=== PATIENT | male | born 1980 | race Caucasian/White ===

== ENCOUNTER → 2016-07-30 | Outpatient (CLI) | payer BC ==
[~2016-07-30] MED LIST: CITA20TA9 PO; GLC/500 PO; GLY/5 PO; INSDGI SC; LISI-461 PO; OXYC-57 PO; PREG1CAP28 PO
--- NOTE | 2016-07-30 18:44 | DIAGNOSTIC IMAGING REPORT ---
MRI OF THE LUMBAR SPINE WITHOUT CONTRAST CLINICAL HISTORY: Lumbar pain. L5-S1 herniated disc. COMPARISON STUDY: No previous studies for comparison. TECHNIQUE: Utilizing a 1.5 Liz magnet and dedicated coil, multiplanar, multiecho imaging of the lumbar spine was performed without IV contrast. FINDINGS: For purposes of numbering on this exam, the L5-S1 disc space is assigned to axial image 23 of 26. Alignment of the lumbar spine is anatomic. Vertebral body heights are maintained. There is no intracanalicular mass or fluid collection. The conus terminates at the upper L2 level. Paravertebral soft tissues are unremarkable. No marrow replacement is present. L1-2: The central canal and neural foramen are patent. L2-3: The central canal and neural foramen are patent. L3-4: The central canal and neural foramen are patent. L4-5: The central canal and neural foramen are patent. L5-S1: Disc space narrowing is noted. There is a disc bulge with superimposed central disc protrusion that result in mild narrowing of the central canal and lateral recesses as well as the left neural foramen. There is minimal facet arthrosis at this level. IMPRESSION: 1. Disc bulge with superimposed central disc protrusion at L5-S1 which result in mild narrowing of the central canal and lateral recesses. 2. Otherwise, unremarkable MRI of the lumbar spine. Electronically signed by: Stewart Beal M.D. 07/30/2016 6:42 PM Dictated Date/Time: 07/30/2016 6:38 PM
== END | disposition home or self-care (01) ==
LOC: C.MRI 17:32
PROVIDERS: ATTEND Orthopaedic Surgery Orthopaedic Surgery of the Spine
DX: M51.27 Other intervertebral disc displacement, lumbosacral region (principal)

== ENCOUNTER → 2016-08-06 | Day surgery (SDC) | payer BC ==
[2016-07-22 09:11] VITALS: BMI 32.0
[~2016-08-06] VITALS: Ht 177.8 cm; Wt 102.3 kg
[~2016-08-06] MED LIST changes: +ATROPINE SULFATE 0.1 MG/ML 5ML SYR IV PRN; +BACITRACIN 50000 UNIT VIAL IR ONE; +BUPIVACAINE/EPINEPHRINE 0.5% MPF 1:200,000 30 ML VIAL INJ ONE; +CEFAZOLIN IV 2,000 MG/60 ML D5W IV ONE; +DEXAMETHASONE SOD INJ 4 MG/ML VIAL ONE; +DURASEAL DURAL SEALANT 5ML TOP ONE; +EpHEDrine SULFATE INJ 50 MG/ML AMP IV PRN; +FENTANYL CITRATE INJ 50 MCG/1 ML 2 ML VIAL ONE; +FLOSEAL HEMOSTATIC MATRIX 5ML TOP ONE; +GLYCOPYRROLATE INJ 0.2 MG/ML VIAL ONE; +HYDROmorphone INJ 1 MG/ML SYR IV PRN; +LABETALOL HCL IV 5 MG/ML 20ML IV PRN; +LABETALOL HCL IV 5 MG/ML 20ML ONE; +LACTATED RINGER'S 1000ML 1,000 ML IV SCH; +LIDOCAINE HCL 2% 2 ML VIAL (20MG/ML) ONE; +MIDAZOLAM HCL 1 MG/ML 2ML VIAL ONE; +NEOSTIGMINE METHYLSULFATE 1 MG/ML 10ML VIAL ONE; +ONDANSETRON INJ 2 MG/ML 2 ML VIAL IV PRN; +ONDANSETRON INJ 2 MG/ML 2 ML VIAL ONE; +OXYCODONE/ACETAMINOPHEN 5-325 TAB PO PRN; +PROPOFOL IV EMULSION 10 MG/ML 20 ML VIAL IV ONE; +ROCURONIUM BROMIDE 10 MG/ML 5 ML VIAL ONE; +SODIUM CHLORIDE 0.9% 1000ML 1,000 ML IV SCH; +THROMBIN 5000 UNITS KIT TOP ONE
[2016-08-06 09:32] VITALS: BP 122/91; PULSE 93; TEMP 37; O2SAT 96; Ht 177.8 cm; Wt 102.3 kg
--- NOTE | 2016-08-06 11:01 | History and Physical ---
History & Physical Date Aug 06, 2016. Chief Complaint LBP and LLE pain History of Present Illness The patient is a 36 year old male with complaints of above who failed outpatient treatment. intermittent numbness. no weakness. MRI shows L5-S1 DDD and L eccentric disc protrusion. Past Medical/Surgical History HTN type II diabetes Additional History Hepatic Disease: No Endocrine Disorder: No Kidney Disease: No Hypertension: Yes Heart Disease: No Bleeding Tendencies: No Infectious Diseases: No Allergies Coded Allergies: No Known Allergies (Unverified , 08/06/16) Home Medications Scheduled Citalopram Hydrobromide (Celexa), 20 MG PO QAM Glyburide (Diabeta), 10 MG PO BID Insulin Glargine (Lantus), 20 UNITS SC QAM Lisinopril (Zestril), 10 MG PO QAM Metformin Hcl (Glucophage), 1,000 MG PO BID Pregabalin (Lyrica), 75 MG PO QAM Physical Examination Skin: warm/dry Eyes: normal inspection ENT: normal ENT inspection, pharynx normal Head: normocephalic, atraumatic Neck: supple, trachea midline Respiratory/Chest: lungs clear, no respiratory distress Cardiovascular: regular rate, rhythm Back: normal inspection Extremities: normal inspection, normal range of motion Neurologic/Psych: no motor/sensory deficits, alert, normal reflexes, oriented x 3 Diagnosis L L5-S1 HNP Plan of Treatment L L5-S1 microdisceomty
--- NOTE | 2016-08-06 11:16 | Discharge Instructions ---
Discharge Instructions Admission Reason for Admission: Herniated Nucleus Pulposus Discharge Discharge Diagnosis / Problem: Lumbar Disc Herniation Discharge Goals Goal(s): Decrease discomfort, Improve function, Increase independence Activity Recommendations Activity Limitations: as noted below Lifting Limitations: no more than 5 pounds Exercise/Sports Limitations: until after follow-up appointment May Resume Sexual Activity: after follow-up appointment Shower/Bathe: may shower/bathe in 3 days . Instructions / Follow-Up Instructions / Follow-Up ACTIVITY RECOMMENDATIONS: SELF CARE INSTRUCTIONS AFTER A LAMINECTOMY 1. No prolonged sitting (less than 30 minutes for the first 3 weeks after surgery). 2. No bending, lifting more than 5 pounds, or twisting (roll like a log when turning in bed). 3. You may shower 3 days after surgery if no drainage from wound. Thoroughly dry wound. Do not soak in the tub. 4. Please walk as much as you can for exercise. Gradually increase the distance that you walk as your endurance increases. 5. You may drive in 7-10 days if you are comfortable and no longer requiring pain medications. SPECIAL CARE INSTRUCTIONS: VERY IMPORTANT TO READ AND REVIEW A. Your surgical incision has been closed with a cosmetic suture under the skin that will dissolve in about 6 weeks. In 14 days, you can use a pair of clean scissors and cut the suture that is left outside of the skin at the ends of your incision. B. Complications are uncommon, but please contact us if you have any signs or symptoms of: 1. wound infection (fever higher than 102.5 degrees F, redness, separation of wound, drainage, or increasing pain from the incision) 2. blood clots in legs (pain, swelling, redness and warmth in legs) 3. urinary tract infection (fever higher than 102.5 degrees, burning upon urination or increased frequency of urination) 4. nerve problems (inability to walk on your toes or heels, numbness, loss of bowel or bladder control) 5. any other symptoms that concern you. C. Please call the office at if you have any concerns or questions about your operation or recovery. MANAGING PAIN AFTER SPINAL SURGERY 1. Narcotic medication is intended for short-term use and will be provided for surgical pain. Surgical pain usually lasts for a period of 4-6 weeks. Narcotic medication includes Percocet, Vicodin, Darvocet, Tylenol #3 or Lortab. 2. Longer-term pain is more appropriately treated with non-narcotic medication such as Tylenol ES. 3. Muscle spasm is not appropriately treated with narcotics. Muscle relaxers such as Soma, Flexeril or Skelaxin can be used along with Tylenol ES. 4. Remember that we all live with some "aches and pains". This is not unusual or uncommon after an injury or as we get older. 5. We will provide appropriate medication within the normal guidelines of their prescribed use. We will also be very cautious and aware of potential abuse and extended duration of patients' medication needs. 6. Please allow 2-3 days to process refills. Prescriptions will not be mailed but must be picked up at the office. FOLLOW UP VISIT: Keep your scheduled follow-up appointment. Any questions, please call the office at . Current Hospital Diet Patient's current hospital diet: Discharge Diet Recommended Diet: Regular Diet Pending Studies Studies pending at discharge: no Medical Emergencies . Who to Call and When: Medical Emergencies: If at any time you feel your situation is an emergency, please call 911 immediately. . Non-Emergent Contact Non-Emergency issues call your: Surgeon Call Non-Emergent contact if: temperature is above 101, your pain is not controlled, your pain is worsening, your pain is unusual for you, your pain is concerning you, wound has increased drainage, wound has increased redness, wound has increased pain, you have any medication questions . "Provider Documentation" section prepared by Camilo Waterman. VTE Core Measure Inpt VTE Proph given/why not?: Jose J Toledo
--- NOTE | 2016-08-06 12:20 | DIAGNOSTIC IMAGING REPORT ---
LUMBAR SPINE, INTRAOPERATIVE FLUOROSCOPY HISTORY: Microdiscectomy. FLUOROSCOPY TIME: 4 seconds. FINDINGS: Intraoperative fluoroscopy was provided for the lumbar spine. 2 fluoroscopic spot images were obtained. IMPRESSION: Fluoroscopy provided for a L5-S1 microdiscectomy. Electronically signed by: Ino Martinez M.D. 08/06/2016 12:19 PM Dictated Date/Time: 08/06/2016 12:18 PM
[2016-08-06] MEDS: FENTANYL CITRATE INJ 50 MCG/1 ML 2 ML VIAL IV PRN ×4 (12:37→12:52)
--- NOTE | 2016-08-06 13:15 | Anesthesiology Progress Note ---
Anesthesia Post Op Note Date & Time Aug 06, 2016 at 13:15 Vital Signs Pain Intensity: 4 Vital Signs Past 12 Hours Date Time Temp Pulse Resp B/P Pulse Ox O2 Delivery O2 Flow Rate FiO2 08/06/16 13:10 36.8 89 16 133/85 94 Room Air 08/06/16 13:00 36.8 91 16 137/85 94 Room Air 08/06/16 12:50 103 16 156/106 99 Room Air 08/06/16 12:40 103 16 156/106 99 Mask 10 08/06/16 12:30 103 16 163/105 99 Mask 10 08/06/16 12:21 36.6 95 16 182/112 99 Mask 10 08/06/16 09:32 37.0 93 20 122/91 96 Room Air Notes Mental Status: alert / awake / arousable, participated in evaluation Pt Amnestic to Procedure: Yes Nausea / Vomiting: adequately controlled Pain: adequately controlled Airway Patency, RR, SpO2: stable & adequate BP & HR: stable & adequate Hydration State: stable & adequate Anesthetic Complications: no major complications apparent
[2016-08-06 13:20] VITALS: BP 129/83; PULSE 84; TEMP 37.2; O2SAT 96
--- NOTE | 2016-08-06 13:33 | OPERATIVE REPORT ---
DATE OF OPERATION: 08/06/2016 PREOPERATIVE DIAGNOSIS: Left L5-S1 herniated nucleus pulposus. POSTOPERATIVE DIAGNOSIS: Same. PROCEDURE: Left L5-S1 microdiscectomy. SURGEON: Dr. Rider. RELAY OPERATOR: Camilo Waterman PA-C. Please note he participated in all portions of the procedure and was critical for performance of procedure, participated in positioning, prepping, draping, retraction, and wound closure. ANESTHESIA: General endotracheal anesthesia. COMPLICATIONS: None. ESTIMATED BLOOD LOSS: Minimal. PROCEDURE IN DETAIL: After identification of patient and operative level, he was brought to the OR where he underwent induction of general anesthesia. He was then positioned prone on Michele OR table with all bony prominences well padded. Care was taken to avoid pressure on the periorbital area. Lumbosacral area was sterilely prepped and draped in usual fashion. Antibiotics were administered. Time-out was performed. Level was confirmed and skin incision was localized with lateral fluoroscopy and a spinal needle. I infiltrated the skin with 0.5% Marcaine with epinephrine. I then exposed the left L5-S1 interlaminar window and confirmed level with fluoroscopy. I marked the operative level and placed a belt sewer retractor and then created a small laminotomy under the caudal edge of L5 and removed the ligamentum flavum. Identified the traversing nerve root, mobilized it medially, protected it with a nerve root retractor and made a vertical annulotomy and removed loose disc material deep to the annulus. The nerve root appeared decompressed, part of the annulus was calcified but was more mobile after removal of disc fragments. I then irrigated with bacitracin solution. I did question whether there was a small area of thin dura under the remaining edge of the L5 lamina. There was no CSF leak, question whether there was an arachnoid bleb but this was not obvious. I explored the area, could not find any tear. I then applied FloSeal for hemostasis and then applied DuraSeal over the exposed dura at the end as insurance. I then closed in layered fashion over ROSANA drain. All sponge and needle counts were correct at the end of the case. I attest to the content of the Intraoperative Record and any orders documented therein. Any exceptio ns are noted below.
[2016-08-06 13:50] VITALS: BP 126/90; PULSE 92; O2SAT 97
[2016-08-06 14:20] VITALS: BP 139/82; PULSE 89; TEMP 37.1; O2SAT 95
== END | disposition home or self-care (01) ==
LOC: C.ACU 09:13
PROVIDERS: ATTEND Orthopaedic Surgery Orthopaedic Surgery of the Spine
DX: M51.27 Other intervertebral disc displacement, lumbosacral region (principal); I10 Essential (primary) hypertension; E11.9 Type 2 diabetes mellitus without complications; F32.9 Major depressive disorder, single episode, unspecified; Z79.4 Long term (current) use of insulin; Z68.32 Body mass index [BMI] 32.0-32.9, adult; Z98.818 Other dental procedure status; F17.220 Nicotine dependence, chewing tobacco, uncomplicated

== ENCOUNTER 2016-12-03 07:12 | Inpatient (IN) | payer BC ==
--- NOTE | 2016-11-18 18:49 | HISTORY & PHYSICAL EXAMINATION ---
DATE OF ADMISSION: 12/03/2016 CHIEF COMPLAINT: Evaluate recurrent back and left leg pain. HISTORY OF PRESENT ILLNESS: The patient is a 36-year-old male who underwent elective microdiskectomy by myself back at the end of July for L5-S1 disc herniation, disc degeneration and improved for a while, but then developed recurrence of symptoms. Prior to surgery, he had had chronic symptoms for years, undergoing multiple epidural injections and courses of therapy without lasting benefit. He states his symptoms recurred when he attempted to increase activity and do more at work. 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 A followup MRI revealed persistent disc protrusion, epidural fibrosis prior surgery, but there are no obvious recurrent disc herniations. He had significant foraminal stenosis on the left at L5-S1. He does have advanced disc degeneration, some mild post-surgical changes. He reports now that symptoms have recurred with activity, they are worse than prior. He desires definitive treatment. He has no right leg symptoms. No fevers, no chills. He had an uneventful postoperative course. PAST MEDICAL AND SURGICAL HISTORY: Hypertension is well controlled, diabetes treated with oral medications, prior meniscectomy, and see above for lumbar surgery. He has obesity. ALLERGIES: None. MEDICATIONS: Lisinopril, metformin, glyburide, Celexa, hydrocodone. SOCIAL HISTORY: The patient is single, uses snuff. No alcohol. FAMILY HISTORY: Diabetes, hypertension. REVIEW OF SYSTEMS: Negative for chest pain, shortness of breath, dyspnea on exertion, fevers, chills, night sweats, malaise. HE REPORTS AN ALLERGY TO BEE STINGS. He denies other metabolic, endocrine or neurologic complaints or concerns and no bleeding diathesis. PHYSICAL EXAMINATION: GENERAL: He stands 5 feet 10 inches tall. He weights 227 pounds. He stands normal gait. BACK AND SPINE: He has well preserved lumbar range of motion. His lumbar incision from prior is well healed with no erythema, drainage, fluctuance or tenderness to palpation. EXTREMITIES: He has negative straight leg raise on the right, positive on the left. He has 5/5 strength mini motor testing of both lower extremities in all motor groups. He has intact sensation to light touch in all dermatomes in the lower extremities. He has symmetric normal DTRs at patellar and Achilles. No clonus. He has palpable dorsalis pedis pulses. CARDIOVASCULAR: Auscultation reveals a regular rate and rhythm. LUNGS: Clear to auscultation bilaterally. NEUROLOGIC: He has normal affect. NECK: He has no obvious lymphadenopathy. SKIN: Normal in appearance with a lumbar scar as above. ASSESSMENT AND PLAN: The patient has recurrent lumbar disc protrusion with foraminal stenosis and recurrent symptoms due to his advanced disc degeneration. Given the chronicity of his symptoms, failure of initial decompression discectomy, he desires revision surgery. At this point to address foraminal disease, I think he is best served with revision, decompression, facetectomy and fusion with interbody L5-S1. The risks reviewed and he would like to proceed. His questions were answered. JOSI
[2016-11-21 10:23] VITALS: Ht 177.8 cm; Wt 100.8 kg
--- NOTE | 2016-11-21 10:54 | PAT Medication Instructions ---
Service Date November 21, 2016. Current Home Medication List Citalopram Hydrobromide (Celexa), 20 MG PO QAM Glyburide (Diabeta), 10 MG PO BID Insulin Glargine (Lantus), 20 UNITS SC QAM Lisinopril (Zestril), 10 MG PO QAM Metformin Hcl (Glucophage), 1,000 MG PO BID Oxycodone/Acetaminophen 5MG/325MG (Percocet 5MG/325MG), 1-2 TABLETS PO Q4H PRN for Pain Pregabalin (Lyrica), 75 MG PO QAM Medication Instructions For Your Scheduled Surgery - Hold the following medications 48 hours prior to surgery: Metformin Hcl (Glucophage), 1,000 MG PO BID - Hold the following medications the morning of surgery: Glyburide (Diabeta), 10 MG PO BID Lisinopril (Zestril), 10 MG PO QAM - Take the following medications the morning of surgery with a sip of water OTHERWISE NOTHING TO EAT OR DRINK AFTER MIDNIGHT: Citalopram Hydrobromide (Celexa), 20 MG PO QAM Pregabalin (Lyrica), 75 MG PO QAM Oxycodone/Acetaminophen 5MG/325MG (Percocet 5MG/325MG), 1-2 TABLETS PO Q4H PRN for Pain (may take if needed up to 4 hours prior to surgery) - For Insulin Dependent Diabetic patients: Test blood sugar A.M. of surgery. - If Blood Sugar is GREATER THAN 150, take half of your regular dose of: Insulin Glargine (Lantus) - If Blood Sugar is LESS THAN 150, do not take any: Insulin Glargine ( Lantus) - Take the following medications as scheduled the night before surgery: Glyburide (Diabeta), 10 MG PO BID Oxycodone/Acetaminophen 5MG/325MG (Percocet 5MG/325MG), 1-2 TABLETS PO Q4H PRN for Pain If you have any questions please call us at [phone] or [phone] or [phone]
[2016-11-21 11:34] LABS: BASO % 0.9 %; BASO ABS # 0.05 K/uL (0-0.2); COMPLETE YES; EOS % 5.1 %; HEMATOCRIT 41.9 % (42-52); IG% 1.3 %; LYMPH % 33.3 %; LYMPH ABS # 1.83 K/uL (1.2-3.4); MEAN CELL VOLUME 85.5 fL (80-100); MEAN CORPUSCULAR HGB CONC 35.1 g/dl (32-36); MEAN PLATELET VOLUME 10.6 fL (7.4-10.4); MONO % 5.5 %; NEUT % 53.9 %; PLATELET COUNT 225 K/uL (130-400); WHITE BLOOD COUNT 5.49 K/uL (4.8-10.8)
[2016-11-21 11:38] LABS: URINE APPEARANCE CLEAR (CLEAR); URINE BILIRUBIN NEG (NEG); URINE COLOR YELLOW; URINE EPITHELIAL CELL AUTO 0-5 /lpf (0-5); URINE NITRITE NEG (NEG); URINE SPECIFIC GRAVITY 1.022 (1.000-1.030); UROBILINOGEN NEG (NEG)
[2016-11-21 12:01] LABS: MANUAL MICROSCOPIC REQUIRED? NO; REVIEW REQ? NO
[2016-11-21 13:29] LABS: BUN/CREATININE RATIO 18.9 (10-20); CREATININE 0.83 mg/dl (0.60-1.40); POTASSIUM 4.4 mmol/L (3.5-5.1)
[~2016-12-03] VITALS: Ht 177.8 cm; Wt 100.8 kg
[2016-12-03] VITALS (9 sets, daily range): BP systolic 104–127; BP diastolic 67–85; PULSE 83–103; TEMP 36.7–37; O2SAT 94–99
[~2016-12-03 07:12] MED LIST changes: -ATROPINE SULFATE 0.1 MG/ML 5ML SYR IV PRN; -BACITRACIN 50000 UNIT VIAL IR ONE; -BUPIVACAINE/EPINEPHRINE 0.5% MPF 1:200,000 30 ML VIAL INJ ONE; +CEFAZOLIN 2000 MG/60 ML D5W IV SCH; -CEFAZOLIN IV 2,000 MG/60 ML D5W IV ONE; +CeleBREX 200 MG CAP PO SCH; -DEXAMETHASONE SOD INJ 4 MG/ML VIAL ONE; -DURASEAL DURAL SEALANT 5ML TOP ONE; -EpHEDrine SULFATE INJ 50 MG/ML AMP IV PRN; -FENTANYL CITRATE INJ 50 MCG/1 ML 2 ML VIAL ONE; -FLOSEAL HEMOSTATIC MATRIX 5ML TOP ONE; -GLYCOPYRROLATE INJ 0.2 MG/ML VIAL ONE; -HYDROmorphone INJ 1 MG/ML SYR IV PRN; -LABETALOL HCL IV 5 MG/ML 20ML IV PRN; -LABETALOL HCL IV 5 MG/ML 20ML ONE; -LIDOCAINE HCL 2% 2 ML VIAL (20MG/ML) ONE; -MIDAZOLAM HCL 1 MG/ML 2ML VIAL ONE; -NEOSTIGMINE METHYLSULFATE 1 MG/ML 10ML VIAL ONE; -ONDANSETRON INJ 2 MG/ML 2 ML VIAL IV PRN; -ONDANSETRON INJ 2 MG/ML 2 ML VIAL ONE; -OXYCODONE/ACETAMINOPHEN 5-325 TAB PO PRN; +PREGABALIN 75 MG CAP PO SCH; -PROPOFOL IV EMULSION 10 MG/ML 20 ML VIAL IV ONE; -ROCURONIUM BROMIDE 10 MG/ML 5 ML VIAL ONE; -SODIUM CHLORIDE 0.9% 1000ML 1,000 ML IV SCH; -THROMBIN 5000 UNITS KIT TOP ONE
--- NOTE | 2016-12-03 09:13 | History & Physical Bridge Note ---
H&P Re-Evaluation Bridge Note: I have examined the patient, reviewed the History & Physical and in the interval since the performance of the History & Physical I have noted the following changes of clinical significance: No changes noted
[2016-12-03] MEDS ORDERED: EpHEDrine SULFATE INJ 50 MG/ML AMP IV PRN (09:15)
[2016-12-03] MEDS ORDERED: PHENYLEPHRINE 100MCG/ML 5ML SYR IV PRN (09:15)
[2016-12-03] MEDS ORDERED: ATROPINE SULFATE 0.1 MG/ML 5ML SYR IV PRN (09:15)
[2016-12-03] MEDS ORDERED: ONDANSETRON INJ 2 MG/ML 2 ML VIAL IV PRN ×2 (09:15→11:30)
[2016-12-03] MEDS ORDERED: MIDAZOLAM HCL 1 MG/ML 2ML VIAL ONE (09:26)
[2016-12-03] MEDS ORDERED: FENTANYL CITRATE INJ 50 MCG/1 ML 2 ML VIAL ONE ×4 (09:26→11:15)
[2016-12-03] MEDS ORDERED: HEPARIN SOD (PORCINE) 1000 UNIT/ML 10 ML VIAL ONE (09:27)
[2016-12-03] MEDS ORDERED: THROMBIN FOR SOLN 20000 UNIT KIT ONE (09:27)
[2016-12-03] MEDS ORDERED: BACITRACIN 50000 UNIT VIAL ONE (09:27)
[2016-12-03] MEDS ORDERED: BUPIVACAINE/EPINEPHRINE 0.5% MPF 1:200,000 30 ML VIAL ONE (09:27)
[2016-12-03] MEDS ORDERED: THROMBIN 5000 UNITS KIT ONE (09:27)
[2016-12-03] MEDS ORDERED: HYDROmorphone INJ 2 MG/ML SYR/VIAL ONE (10:05)
[2016-12-03] MEDS ORDERED: PROPOFOL IV EMULSION 10 MG/ML 20 ML VIAL IV ONE (10:25)
[2016-12-03] MEDS ORDERED: ONDANSETRON INJ 2 MG/ML 2 ML VIAL ONE (10:25)
[2016-12-03] MEDS ORDERED: GLYCOPYRROLATE INJ 0.2 MG/ML VIAL ONE (10:25)
[2016-12-03] MEDS ORDERED: NEOSTIGMINE METHYLSULFATE 1 MG/ML 10ML VIAL ONE (10:25)
[2016-12-03] MEDS ORDERED: ESMOLOL HCL 10 MG/ML 10 ML VIAL ONE (10:25)
[2016-12-03] MEDS ORDERED: DEXAMETHASONE SOD INJ 4 MG/ML VIAL ONE (10:25)
[2016-12-03] MEDS ORDERED: LIDOCAINE HCL 2% 2 ML VIAL (20MG/ML) ONE (10:25)
[2016-12-03] MEDS ORDERED: FLOSEAL HEMOSTATIC MATRIX 10ML TOP ONE (11:12)
[2016-12-03] MEDS ORDERED: SODIUM CHLORIDE 0.9% 1000ML 1,000 ML IV SCH (11:26)
--- NOTE | 2016-12-03 11:26 | [facility] Post Operative Brief Note ---
Immediate Operative Summary Operative Date December 03, 2016. Pre-Operative Diagnosis SPINAL STENOSIS Post-Operative Diagnosis SAME PREOP Procedure(s) Performed LEFT L5-S1 REVISION OF DISCECTOMY WITH L5-S1 INTERBODY FUSION AND INSTRUMENTED FUSION, USE OF ARTERIOCYTE Surgeon DR. Eric ROSS Handbag Frames Inspector Surgeon(s) Bulmaro PEDROZA PAC Estimated Blood Loss 150ml Findings dict Specimens NONE
[2016-12-03] MEDS ORDERED: BISACODYL 10 MG SUPP PR PRN (11:30)
[2016-12-03] MEDS ORDERED: LORAZEPAM 0.5 MG TAB PO PRN (11:30)
[2016-12-03] MEDS ORDERED: ALUMINUM/MAGNESIUM SUSP 30 ML UDC PO PRN (11:30)
[2016-12-03] MEDS ORDERED: MAGNESIUM HYDROXIDE SUSP 30 ML UDC PO PRN (11:30)
[2016-12-03] MEDS ORDERED: PROMETHAZINE HCL INJ 12.5 MG in SODIUM CHLORIDE 0.9% 50ML 50 ML IV PRN (11:30)
[2016-12-03] MEDS ORDERED: FAMOTIDINE 20 MG TAB PO PRN (11:30)
[2016-12-03] MEDS ORDERED: NALOXONE HCL 0.4 MG/1 ML VIAL/CARP IV PRN ×2 (11:30)
[2016-12-03] MEDS ORDERED: ACETAMINOPHEN 500 MG TAB PO PRN (11:30)
[2016-12-03] MEDS ORDERED: hydrOXYzine HCL 25 MG TAB PO PRN (11:30)
[2016-12-03] MEDS ORDERED: LORAZEPAM INJ 0.5 MG in SYRINGE 0.75 ML IV PRN (11:30)
[2016-12-03] MEDS ORDERED: METOCLOPRAMIDE HCL INJ 5 MG/ML 2 ML VIAL IV PRN (11:30)
[2016-12-03] MEDS ORDERED: SOD PHOSPHATE/SOD BIPHOSPHATE ENEMA 132 ML BTL PR PRN (11:30)
[2016-12-03] MEDS ORDERED: HYDROmorphone HCL 0.5MG/ML 50 ML CASSETTE ONE (11:47)
--- NOTE | 2016-12-03 11:47 | DIAGNOSTIC IMAGING REPORT ---
INTRAOPERATIVE FLUOROSCOPIC IMAGES OF THE LUMBAR SPINE CLINICAL HISTORY: L5-S1 revision discectomy with fusion. COMPARISON STUDY: Lumbar spine fluoroscopic images August 06, 2016. Fluoroscopy time: 6.8 seconds. FINDINGS: 2 fluoroscopic images demonstrate an L5-S1 spacer status post discectomy. There are bilateral pedicle screws at the L5 and S1 levels. Interconnecting rods are present. Hardware is intact. There is a posterior decompression. IMPRESSION: Expected findings following L5-S1 discectomy and bilateral pedicle screw fusion. Electronically signed by: Stewart Beal M.D. 12/03/2016 11:45 AM Dictated Date/Time: 12/03/2016 11:44 AM
[2016-12-03] MEDS: HYDROmorphone INJ 2 MG/ML SYR/VIAL IV PRN ×3 (11:52→12:15)
--- NOTE | 2016-12-03 12:19 | Anesthesiology Progress Note ---
Anesthesia Post Op Note Date & Time December 03, 2016 at 12:18 Vital Signs Pain Intensity: 6.0 Vital Signs Past 12 Hours Date Time Temp Pulse Resp B/P Pulse Ox O2 Delivery O2 Flow Rate FiO2 12/03/16 12:10 90 14 141/86 97 Nasal Cannula 4 12/03/16 12:00 87 14 128/93 98 Mask 10 12/03/16 11:50 89 17 142/95 100 Mask 10 12/03/16 11:41 36.7 84 16 129/87 96 Mask 10 12/03/16 08:01 37 83 18 125/82 96 Room Air Notes Mental Status: alert / awake / arousable, participated in evaluation Pt Amnestic to Procedure: Yes Nausea / Vomiting: adequately controlled Pain: adequately controlled Airway Patency, RR, SpO2: stable & adequate BP & HR: stable & adequate Hydration State: stable & adequate Anesthetic Complications: no major complications apparent
[2016-12-03] MEDS: SODIUM CHLORIDE 0.9% 1000ML 1,000 ML IV SCH (13:41)
[2016-12-03] MEDS: HYDROmorphone HCL 0.5MG/ML 50 ML CASSETTE IV PRN ×3 (15:15→22:57)
[2016-12-03] MEDS: CEFAZOLIN IV 2,000 MG in DEXTROSE 5% 50ML 50 ML IV SCH (17:45)
[2016-12-03] MEDS ORDERED: NURSING VERBAL MED ORDER ONE ×4 (18:15→22:00)
[2016-12-03] MEDS ORDERED: NICOTINE 21 MG/24 HR TDSY TD STA (18:26)
--- NOTE | 2016-12-03 20:35 | Medical Consult ---
Consultation Date of Consultation: December 03, 2016. Attending Physician: Jim Rider M.D. Reason for Consultation: glucose mx History of Present Illness This is a 36 yo m that is POD0 s/p left L5-S1 discectomy revision and fusion that we have been requested to assist in glucose management. The patient states that his sugars are well controlled on his regimen which includes lantus 20 units in the am and metformin and glyburide daily. The patient has a very strong family history of DM on both sides of his family. He also has a history of HTN since he was in high school and has been well controlled on his medication regimen. he has a history of anxiety which he takes Celexa for. He has started eating and has been tolerating the food well. He also notes that the preoperative left LE numbness has started to improve. Past Medical/Surgical History Anxiety S/P discectomy revision and fusion HTN DMII Family History Diabetes mellitus Social History Smoking Status: Never Smoker Smokeless Tobacco Use: No Alcohol Use: none Drug Use: none Marital Status: in relationship Housing Status: other (mother shall be staying with him while he is recovering ) Occupation Status: employed ([employer]) Allergies Coded Allergies: No Known Allergies (Unverified , 12/03/16) Current Inpatient Medications Current Inpatient Medications Medications (Trade) Dose Ordered Sig/Monty Route Start Time Stop Time Status Last Admin Dose Admin Lactated Ringer's (Lr 1000ml) 1,000 ml @ 15 mls/hr Q24H IV 12/03/16 06:00 12/04/16 05:59 12/03/16 08:21 50 MLS/HR Atropine Sulfate (Atropine Sulfate 0.1MG/Ml Inj) 0.5 mg Q1M PRN IV 12/03/16 09:15 12/04/16 09:14 Citalopram Hydrobromide (celeXA TAB) 20 mg QAM PO 12/04/16 09:00 01/03/17 08:59 Glyburide (MICRONase TAB) 10 mg BIDM PO 12/04/16 08:30 01/03/17 08:29 Lisinopril (Zestril Tab) 10 mg QAM PO 12/04/16 09:00 01/03/17 08:59 Pregabalin 75 mg 75 mg QAM PO 12/04/16 09:00 01/03/17 08:59 Promethazine HCl/ Sodium Chloride (Phenergan Inj/ Nss 50ml) 50.5 ml @ 202 mls/hr Q6H PRN IV 12/03/16 11:30 01/02/17 11:29 Ondansetron HCl (Zofran Inj) 4 mg Q6H PRN IV 12/03/16 11:30 01/02/17 11:29 Metoclopramide HCl (Reglan Inj) 10 mg Q6H PRN IV 12/03/16 11:30 01/02/17 11:29 Lorazepam 0.5 mg 0.5 mg Q8H PRN PO 12/03/16 11:30 01/02/17 11:29 Lorazepam 0.5 mg/ Syringe 1 ml @ 1 mls/min Q8H PRN IV 12/03/16 11:30 01/02/17 11:29 Sodium Chloride (Nss 1000ml) 1,000 ml @ 75 mls/hr [id number] IV 12/03/16 11:26 01/02/17 11:25 12/03/16 13:41 75 MLS/HR Polyethylene (Miralax Powder Packet) 17 gm Q6 PO 12/05/16 06:00 01/04/17 05:59 Bisacodyl (Dulcolax Supp) 10 mg DAILY PRN FL 12/03/16 11:30 01/02/17 11:29 Magnesium Hydroxide (Milk Of Magnesia Susp) 30 ml DAILY PRN PO 12/03/16 11:30 01/02/17 11:29 Hydromorphone HCl (Dilaudid Inj) 1 mg Q3H PRN IV 12/04/16 06:00 12/18/16 05:59 Oxycodone HCl 5-10mg prn moderate to sev... Q4H PRN PO 12/04/16 06:00 12/18/16 05:59 Cefazolin Sodium/ Dextrose (Ancef Iv/D5 50ml) 60 ml @ 100 mls/hr Q8H IV 12/03/16 18:00 12/04/16 02:35 12/03/16 17:45 100 MLS/HR Acetaminophen (Tylenol Tab) 1,000 mg Q8H PRN PO 12/03/16 11:30 01/02/17 11:29 Naloxone HCl (Narcan Inj) 0.1 mg Q5M PRN IV 12/03/16 11:30 01/02/17 11:29 Senna/Docusate Sodium (Senokot S Tab) 2 tab HS PO 12/03/16 21:00 01/02/17 20:59 Sodium Biphosphate/ Sodium Phosphate (Fleet Enema) 132 ml ONE PRN FL 12/03/16 11:30 01/02/17 11:29 Hydroxyzine HCl (Vistaril Tab) 25 mg Q8H PRN PO 12/03/16 11:30 01/02/17 11:29 Al Hydroxide/Mg Hydroxide (Maalox Susp) 30 ml Q6H PRN PO 12/03/16 11:30 01/02/17 11:29 Famotidine (Pepcid Tab) 20 mg Q12 PRN PO 12/03/16 11:30 01/02/17 11:29 Miscellaneous Information (Discontinue D[employer] OPERATOR) 1 ea TODAY@0600 N/A 12/04/16 06:00 12/04/16 06:01 Naloxone HCl (Narcan Inj) 0.1 mg Q5M PRN IV 12/03/16 11:30 12/04/16 06:00 Hydromorphone HCl 25 mg 25 mg PRN PRN IV 12/03/16 11:30 12/04/16 06:00 12/03/16 19:54 25 MG Sodium Chloride (Nss 1000ml) 1,000 ml @ 15 mls/hr Q24H IV 12/03/16 11:26 12/04/16 06:00 12/03/16 13:04 15 MLS/HR Review of Systems Constitutional: No fever Eyes: No worsening of vision ENT: No hearing loss Respiratory: No cough, No dyspnea at rest, No dyspnea on exertion, No shortness of breath, No sputum, No wheezing Cardiovascular: No chest pain Abdomen: No constipation, No diarrhea, No nausea, No pain, No vomiting Musculoskeletal: + problem reported (numbness improved as above), No joint pain , No muscle pain Genitourinary - Male: No dysuria, No hematuria Neurologic: + numbness/tingling, No balance problems, No weakness Psychiatric: No anxiety, No depression symptoms Endocrine: No fatigue Integumentary: No rash Physical Exam Date Time Temp Pulse Resp B/P Pulse Ox O2 Delivery O2 Flow Rate FiO2 12/03/16 19:10 36.7 91 18 120/73 98 Nasal Cannula 12/03/16 15:45 36.8 103 16 127/85 98 Nasal Cannula 4.0 Humidified Oxygen 12/03/16 15:15 98 Nasal Cannula 4.0 Humidified Oxygen 12/03/16 14:45 97 16 122/74 97 2.0 12/03/16 14:04 98 16 126/84 98 2.0 12/03/16 13:25 90 16 104/67 94 2.0 12/03/16 13:16 Nasal Cannula 4.0 12/03/16 13:14 36.9 93 16 121/78 97 Nasal Cannula 2.0 12/03/16 13:12 Nasal Cannula 4.0 12/03/16 13:00 Nasal Cannula 4.0 12/03/16 12:35 89 12 134/84 96 Nasal Cannula 4 12/03/16 12:20 36.9 87 14 140/97 97 Nasal Cannula 4 12/03/16 12:10 90 14 141/86 97 Nasal Cannula 4 12/03/16 12:00 87 14 128/93 98 Mask 10 12/03/16 11:50 89 17 142/95 100 Mask 10 12/03/16 11:41 36.7 84 16 129/87 96 Mask 10 12/03/16 08:01 37 83 18 125/82 96 Room Air General Appearance: no apparent distress Head: normocephalic, atraumatic Eyes: normal inspection ENT: normal ENT inspection Neck: supple Respiratory/Chest: normal breath sounds, no respiratory distress, no accessory muscle use Cardiovascular: regular rate, rhythm, no murmur Abdomen/GI: normal bowel sounds, non tender, soft Back: normal inspection Extremities/Musculoskelatal: normal inspection, no calf tenderness, no pedal edema Neurologic/Psych: alert, normal mood/affect, oriented x 3, + pertinent finding (sensation of bilat extremities equal and intact, neurovascularly intact LE) Skin: normal color, warm/dry, no rash Lymphatic: no adenopathy Laboratory Results Last 24 Hours Test 12/03/16 07:53 12/03/16 11:47 12/03/16 17:28 Bedside Glucose 115 mg/dl 182 mg/dl 195 mg/dl Assessment & Plan This is a 36 yo m s/p L5-S1 disectomy revision and fusion POD0 requiring medical management post op S/P L5-S1 discectomy revision/ fusion - pain management per primary team DMII - Continue lantus 20 units in am - hold metformin - continue glyburide - insulin ISS Anxiety - continue celexa HTN continue lisinopril Tobacco abuse - nicotine patch Additional Copies To Víctor Gastelum D.O. Assessment and Plan Attending Addendum: I have physically seen and examined this patient, have directed their medical care, have supervised the medical residents activities, and agree with the H&P as noted above, with the following changes: NONE
[2016-12-03] MEDS ORDERED: DEXTROSE 50% 50 ML SYR IV PRN (20:45)
[2016-12-03] MEDS ORDERED: GLUCAGON FOR INJ 1 MG VIAL SQ PRN (20:45)
[2016-12-03] MEDS ORDERED: GLUCOSE 40% GEL 15 GM TUBE PO PRN (20:45)
[2016-12-03] MEDS ORDERED: GLUCOSE 10 TABS/TUBE PO PRN (20:45)
[2016-12-03] MEDS ORDERED: DOCUSATE SODIUM/SENNA 50/8.6MG TAB PO SCH (21:00)
[2016-12-03] MEDS: INSULIN ASPART 100 UNITS/ML 3 ML PEN SC SCH (21:51)
[2016-12-03] MEDS ORDERED: ZOLPIDEM TARTRATE 5 MG TAB PO PRN (22:15)
[2016-12-04] MEDS: SODIUM CHLORIDE 0.9% 1000ML 1,000 ML IV SCH (00:22)
[2016-12-04] MEDS: CEFAZOLIN IV 2,000 MG in DEXTROSE 5% 50ML 50 ML IV SCH (02:26)
[2016-12-04 04:07] VITALS: BP 138/82; PULSE 98; TEMP 37; O2SAT 98
[2016-12-04 05:59] VITALS: PULSE 103; O2SAT 94
[2016-12-04] MEDS ORDERED: DC PCA SCH (06:00)
[2016-12-04] MEDS ORDERED: OXYCODONE HCL IR 5 MG TAB (IMMEDIATE RELEASE) PO PRN (06:00)
[2016-12-04] MEDS ORDERED: HYDROmorphone INJ 1 MG/ML SYR IV PRN (06:00)
[2016-12-04] MEDS ORDERED: NURSING VERBAL MED ORDER ONE (06:30)
[2016-12-04 06:52] LABS: BASO % 0.2 %; BASO ABS # 0.02 K/uL (0-0.2); COMPLETE YES; EOS % 2.1 %; HEMATOCRIT 38.8 % (42-52); IG% 0.4 %; MEAN CORPUSCULAR HEMOGLOBIN 29.4 pg (25-34); MEAN CORPUSCULAR HGB CONC 33.8 g/dl (32-36); MEAN PLATELET VOLUME 10.4 fL (7.4-10.4); MONO % 7.3 %; PLATELET COUNT 194 K/uL (130-400); RED BLOOD COUNT 4.46 M/uL (4.7-6.1); WHITE BLOOD COUNT 8.12 K/uL (4.8-10.8)
[2016-12-04 07:20] VITALS: O2SAT 94
[2016-12-04 07:25] LABS: BUN/CREATININE RATIO 11.3 (10-20); CALCIUM 8.2 mg/dl (8.5-10.1); CREATININE 0.85 mg/dl (0.60-1.40); POTASSIUM 4.3 mmol/L (3.5-5.1)
[2016-12-04] MEDS: INSULIN ASPART 100 UNITS/ML 3 ML PEN SC SCH (08:26)
[2016-12-04] MEDS ORDERED: LISINOPRIL 10 MG TAB PO SCH (09:00)
[2016-12-04] MEDS ORDERED: INSULIN GLARGINE SOLOSTAR 100 UNITS/ML 3 ML PEN SC SCH (09:00)
[2016-12-04] MEDS ORDERED: CITALOPRAM 20 MG TAB PO SCH (09:00)
[2016-12-04] MEDS ORDERED: PREGABALIN 75 MG CAP PO SCH (09:00)
[2016-12-04] MEDS ORDERED: OXYC-57 PO (09:28)
--- NOTE | 2016-12-04 09:29 | Discharge Instructions ---
Discharge Instructions Date of Service December 04, 2016. Admission Reason for Admission: Spinal Stenosis Discharge Discharge Diagnosis / Problem: same Discharge Goals Goal(s): Decrease discomfort Activity Recommendations Activity Limitations: per Instructions/Follow-up section . Instructions / Follow-Up Instructions / Follow-Up ACTIVITY RECOMMENDATIONS: SELF CARE INSTRUCTIONS AFTER THORACIC/LUMBAR FUSIONS 1. You may walk to your tolerance. It is good exercise for your legs and back. Expect some back and intermittent leg aches and pains. 2. You may perform "counter-top" level activities (make a sandwich, yina with a project, etc.). 3. No bending or lifting of more than 10 pounds or back twisting of any nature (roll like a log when turning in bed). 4. You may ride in a car for 20-30 minutes at a time. No driving until after your first visit with your doctor. 5. Frequent changes of position and restricting sitting to 30 minutes at a time will help limit the amount of back spasms and stiffness you may experience. 6. You may discontinue the use of ambulatory aids (cane, crutches, etc.) once your strength and confidence allow. 7. You may inspector of weights and measures the shower and let water strike your incision when you arrive home at least once daily. Do not take a tub bath, sit in a hot tub or go into a swimming pool until after your first recheck in the office. SPECIAL CARE INSTRUCTIONS: VERY IMPORTANT TO READ AND REVIEW A. Your surgical incision has been closed with a cosmetic suture under the skin that will dissolve in about 6 weeks. In 14 days, you can use a pair of clean scissors and cut the suture that is left outside of the skin at the ends of your incision. 1. The small skin tapes can be removed 7 days after surgery if they have not fallen off by that point. 2. You may keep the wound open to air as much as possible to promote healing after post-op day number 5 unless told otherwise by your doctor. 3. If you think the wound looks like it is becoming infected (redness or worsening drainage) and/or you are experiencing fever, chill or worsening back pain and muscle spasms, contact the office so that we may evaluate you as soon as possible. B. Complications are uncommon, but please contact us if you have any signs or symptoms of: 1. wound infection (fever higher than 102.5 degrees F, redness, separation of wound, drainage, or increasing pain from the incision) 2. blood clots in legs (pain, swelling, redness and warmth in legs) 3. urinary tract infection (fever higher than 102.5 degrees F, burning upon urination or increased frequency of urination) 4. nerve problems (inability to walk on your toes or heels, numbness, loss of bowel or bladder control) 5. any other symptoms that concern you C. Please call the office at if you have any concerns or questions about your operation or recovery. D. No smoking! Smoking drastically decreases the chance of a solid fusion. E. Do not take any anti-inflammatory medications (Indocin, Advil, Motrin, Aspirin, Naprosyn, etc.) as these may inhibit the chance of a solid fusion. Tylenol is okay to take for pain. MANAGING PAIN AFTER SPINAL SURGERY 1. Narcotic medication is intended for short-term use and will be provided for surgical pain. Surgical pain usually lasts for a period of 4-6 weeks. Narcotic medication includes Percocet, Vicodin, Darvocet, Tylenol #3 or Lortab. 2. Longer-term pain is more appropriately treated with non-narcotic medication such as Tylenol ES. 3. Muscle spasm is not appropriately treated with narcotics. Muscle relaxers such as Soma, Flexeril or Skelaxin can be used along with Tylenol ES. 4. Remember that we all live with some "aches and pains". This is not unusual or uncommon after an injury or as we get older. a. Back pain is expected and may include muscle spasms for 4 to 6 weeks after surgery. The pain should gradually improve. If the pain worsens for no apparent reason, please contact the office. b. Intermittent leg pain may also be experienced and should not be concerned about unless it worsens for no apparent reason. If so, please contact the office. 5. We will provide appropriate medication within the normal guidelines of their prescribed use. We will also be very cautious and aware of potential abuse and extended duration of patients' medication needs. a. Pain medications are for your comfort and to assist with sleep and rest so that the tissue can heal. They are not provided in order to return to normal activity and should not be used through the day. To do so or worsening pain at night can result from ongoing tissue damage and development of tolerance to the prescribed medicine. 6. Please allow 2-3 days to process refills. Prescriptions will not be mailed but must be picked up at the office. FOLLOW UP VISIT: Keep your scheduled follow-up appointment. Any questions, please call the office at . Current Hospital Diet Patient's current hospital diet: Diabetes Type 2 Diet Discharge Diet Recommended Diet: Regular Diet Procedures Procedures Performed: LEFT L5-S1 REVISION OF DISCECTOMY WITH L5-S1 INTERBODY FUSION AND INSTRUMENTED FUSION, USE OF ARTERIOCYTE Pending Studies Studies pending at discharge: no Medical Emergencies . Who to Call and When: Medical Emergencies: If at any time you feel your situation is an emergency, please call 911 immediately. . Non-Emergent Contact Non-Emergency issues call your: Surgeon . "Provider Documentation" section prepared by Jim Rider. . VTE Core Measure Inpt VTE Proph given/why not?: SCD's [place] Drug Monitoring Program Search Results: patient reviewed within database, no issues identified
--- NOTE | 2016-12-04 09:31 | Discharge Summary ---
Orthopedic Discharge Summary Admission Date/Reason December 03, 2016 at 11:30 Spinal Stenosis. Discharge Date/Disposition December 04, 2016 Home Diagnosis Principal Diagnosis: same Procedure(s) Performed L5-S1 TLIF Medication Reconciliation Continued Medications: Citalopram Hydrobromide (Celexa) 20 Mg Tab 20 MG PO QAM, TAB Glyburide (Diabeta) 5 Mg Tab 10 MG PO BID, TAB Insulin Glargine (Lantus) 100 Unit/Ml Inj 20 UNITS SC QAM, VIAL Lisinopril (Zestril) 10 Mg Tab 10 MG PO QAM, TAB Metformin Hcl (Glucophage) 500 Mg Tab 1000 MG PO BID, TAB Oxycodone/Acetaminophen 5MG/325MG (Percocet 5MG/325MG) Tab 1-2 TABLETS PO Q4H PRN for Pain, #90 TAB (This prescription has been renewed) PAIN Pregabalin (Lyrica) 75 Mg Cap 75 MG PO QAM, CAP Admission Physical Exam As per Admitting History & Physical. Hospital Course He was admitted for elective lumbar surgery and tolerated procedure well. He was transferred to floor in stable condition, ambulated, had pain controlled, drain output was acceptable and he was discharged. Discharge Instructions Please refer to the electronic Patient Visit Report (Discharge Instructions) for additional information.
[2016-12-04 10:49] VITALS: BP 138/82; PULSE 103; TEMP 37; O2SAT 94
[2016-12-05] MEDS ORDERED: POLYETHYLENE (MIRALAX) 17 GM PACK PO SCH (06:00)
--- NOTE | 2016-12-10 10:29 | OPERATIVE REPORT ---
DATE OF OPERATION: 12/03/2016 PREOPERATIVE DIAGNOSES: 1. Recurrent herniated nucleus pulposus, L5-S1-left. POSTOPERATIVE DIAGNOSIS: Same. PROCEDURES: 1. Revision left L5-S1 discectomy. 2. Nonsegmental pedicle screw instrumentation-bilateral L5-S1 with K2M [place] pedicle screws. 3. Posterior lateral fusion, [id number] with Infuse BMP on a collagen sponge, tricalcium phosphate, local bone, bone putty and bone marrow aspirate. 4. Left L5-S1 transforaminal lumbar interbody fusion with K2M titanium mesh, interbody spacer, local bone and bone putty. 5. Right iliac crest bone marrow aspiration and stem cell concentration and application of bone graft. SURGEON: Dr. Rider. AGRIBUSINESS PROFESSOR: Camilo Waterman PA-C. Please note, he participated in all portions of the procedure and was critical for performance of the procedure, participated in positioning, prepping, draping, retraction and wound closure. ANESTHESIA: General endotracheal anesthesia. COMPLICATIONS: None. PROCEDURE: After identification of the patient and operative level, he was brought to the OR where he underwent induction of general anesthesia. He was then positioned prone on Michele OR table. All bony prominences were well padded. Care was taken to avoid pressure on the periorbital area. Lumbosacral area was sterilely prepped and draped in usual fashion. Antibiotics were administered. Time-out was performed. Level was confirmed and skin incision was made from spinous process of L4 to the sacrum. We then exposed the posterior elements out to the tip of the transverse processes bilaterally from L5 to S1 and confirmed level with fluoroscopy after placing Gelpi retractors and a marker at L5. I marked the operative level and then proceeded to perform a revision left L5 laminectomy and revision left L5-S1 discectomy. Epidural adhesions were released, nerve root was mobilized medially and disc material was removed with removal of the annulus from the left at L5-S1. A broad-based disc protrusion was noted and there was marked disc space collapse. I placed the pedicle screws bilaterally at L5 and S1 using K2M [place] pedicle screws and confirmed position with fluoroscopy. All screws had acceptable purchase and direction. I then aspirated bone marrow from the right iliac crest via separate stab incision with a Jamshidi needle and concentrated this with Arteriocyte system. I then applied this to the bone graft hand packer. I completed diskectomy at L5-S1, prepared disc space for subsequent cage introduction, filled the cage with bone graft hand packer, bone marrow aspirate, and local bone and then tamped it into the disc space to restore the disc height. I then lowered the Adrian frame, applied rods and end caps to final tightening. I irrigated with bacitracin solution and decorticated the posterior elements of the facets and the transverse processes bilaterally with a high speed ewelina and packed the lateral gutters with a bone graft mixture as above including Infuse on a collagen sponge. I then closed in layered fashion over ROSANA drain. All sponge and needle counts were correct at the end of the case. I attest to the content of the Intraoperative Record and any orders documented therein. Any exception s are noted below.
== END 2016-12-04 11:59 | disposition home or self-care (01) | DRG 460 ==
LOC: ENRESERVTM → ENRESERVDT → C.ACU 07:12 → C.3E 11:30
PROVIDERS: ADMIT Orthopaedic Surgery Orthopaedic Surgery of the Spine; ATTEND Orthopaedic Surgery Orthopaedic Surgery of the Spine
PROC: 0SG3071 Fusion of Lumbosacral Joint with Autologous Tissue Substitute, Posterior Approach, Posterior Column, Open Approach (ICD-10-PCS; principal; 2016-12-03 09:00)
PROC: 0QB20ZZ Excision of Right Pelvic Bone, Open Approach (ICD-10-PCS; principal; 2016-12-03 09:00)
PROC: 0ST40ZZ Resection of Lumbosacral Disc, Open Approach (ICD-10-PCS; principal; 2016-12-03 09:00)
PROC: 0SG30AJ Fusion of Lumbosacral Joint with Interbody Fusion Device, Posterior Approach, Anterior Column, Open Approach (ICD-10-PCS; principal; 2016-12-03 09:00)
DX: M48.07 Spinal stenosis, lumbosacral region (principal); M51.27 Other intervertebral disc displacement, lumbosacral region; M51.37 Other intervertebral disc degeneration, lumbosacral region; E11.9 Type 2 diabetes mellitus without complications; I10 Essential (primary) hypertension; F41.9 Anxiety disorder, unspecified; E66.9 Obesity, unspecified; F17.220 Nicotine dependence, chewing tobacco, uncomplicated; Z79.899 Other long term (current) drug therapy; Z79.84 Long term (current) use of oral hypoglycemic drugs; Z98.890 Other specified postprocedural states; Z68.31 Body mass index [BMI] 31.0-31.9, adult; Z83.3 Family history of diabetes mellitus; Z82.49 Family history of ischemic heart disease and other diseases of the circulatory system